=== PATIENT | female | born 1990 | race African-American/Black ===

== ENCOUNTER 2023-09-17 19:05 | Emergency (ER) | payer MEDICAID, OTHER ==
[~2023-09-17] VITALS: Ht 172.7 cm; Wt 110.0 kg
[~2023-09-17 19:05] MED LIST: BO1 TP; IBUP-2029 MT
[2023-09-17 19:45] VITALS: BP 138/89; PULSE 81; RESP 17; TEMP 99.1; O2SAT 100
== END 2023-09-17 22:03 | disposition home or self-care (01) ==
LOC: ER 19:17
DX: M67.472 Ganglion, left ankle and foot (principal); Z98.890 Other specified postprocedural states
CPT/HCPCS: 73610; 99283